=== PATIENT | female | born 1990 | race Caucasian/White ===

== ENCOUNTER 2018-02-19 07:16 | Day surgery (SDC) | payer MEDICAID, OTHER ==
[2018-02-18 12:46] LABS: HEMATOCRIT 38.5 % (36.0-47.0); HEMOGLOBIN 13.3 g/dL (12.0-15.5); MEAN CORPUSCULAR HEMOGLOBIN 30.9 pg (27.0-33.4); MEAN CORPUSCULAR HGB CONC 34.6 g/dL (32.0-36.0); MEAN CORPUSCULAR VOLUME 89 fl (80-97); PLATELET COUNT 150 10^3/uL (150-450); RED CELL DISTRIBUTION WIDTH 12.2 % (11.5-14.0); WHITE BLOOD COUNT 6.3 10^3/uL (4.0-10.5)
[2018-02-18 12:52] LABS: APPEARANCE,URINE SLIGHTLY-CLOUDY; BILIRUBIN,URINE NEGATIVE (NEGATIVE); COLOR,URINE YELLOW; GLUCOSE, URINE NEGATIVE (NEGATIVE); KETONES,URINE NEGATIVE (NEGATIVE); LEUKOCYTE ESTERASE,URINE NEGATIVE (NEGATIVE); NITRITE,URINE NEGATIVE (NEGATIVE); PROTEIN,URINE NEGATIVE (NEGATIVE); UROBILINOGEN,URINE NEGATIVE mg/dL (<2.0)
[2018-02-18 13:24] LABS: ALANINE AMINOTRANSFERASE 36 U/L (9-52); ALBUMIN 4.6 g/dL (3.5-5.0); ALKALINE PHOSPHATASE 73 U/L (38-126); ANION GAP 12 (5-19); ASPARTATE AMINO TRANSFERASE 30 U/L (14-36); BILIRUBIN,DIRECT 0.3 mg/dL (0.0-0.4); BILIRUBIN,TOTAL 0.8 mg/dL (0.2-1.3); BLOOD UREA NITROGEN 9 mg/dL (7-20); CALCIUM 9.3 mg/dL (8.4-10.2); CARBON DIOXIDE 28 mmol/L (22-30); CHLORIDE 101 mmol/L (98-107); GLUCOSE 77 mg/dL (75-110); POTASSIUM 3.9 mmol/L (3.6-5.0); SODIUM 140.7 mmol/L (137-145); TOTAL PROTEIN 7.3 g/dL (6.3-8.2)
[~2018-02-19 07:16] MED LIST: CEFAZOLIN 1 GM/D5W RTU 1 GM/50 ML RTUPB IV PRN; LACTATED RINGERS 1000 ML IV PRN; LIDOCAINE 0.5% INJ-PF (5 MG/ML) 50 ML SDV SUBCUT PRN
[2018-02-19] MEDS ORDERED: SUCCINYLCHOLINE CHLORIDE INJ 200 MG/10 ML VIAL ONE (07:43)
[2018-02-19] MEDS ORDERED: ONDANSETRON HCL INJ/PF 4 MG/2 ML SDV ONE (07:43)
[2018-02-19] MEDS ORDERED: DEXAMETHASONE SOD PHOSPHATE INJ 4 MG/1 ML VIAL ONE (07:43)
[2018-02-19] MEDS ORDERED: ROCURONIUM BROMIDE INJ 50 MG/5 ML VIAL IV ONE (07:43)
[2018-02-19] MEDS ORDERED: ALBUTEROL SULFATE 0.083% NEB 2.5 MG/3 ML AMPUL NEB ONE (08:03)
[2018-02-19] MEDS ORDERED: SCOPOLAMINE HYDROBROMIDE 1.5 MG PATCH.TD72 ONE (08:13)
[2018-02-19] MEDS ORDERED: FAMOTIDINE INJ/PF 20 MG/2 ML SDV IV ONE (08:14)
--- NOTE | 2018-02-19 08:40 | RADIOLOGY REPORT (SQ) ---
EXAM DESCRIPTION: CHEST SINGLE VIEW COMPLETED DATE/TIME: 02/19/2018 8:30 am REASON FOR STUDY: COUGH COMPARISON: 02/08/2009 EXAM PARAMETERS: NUMBER OF VIEWS: One view. TECHNIQUE: Single frontal radiographic view of the chest acquired. RADIATION DOSE: NA LIMITATIONS: None. FINDINGS: LUNGS AND PLEURA: No opacities, masses or pneumothorax. No pleural effusion. MEDIASTINUM AND HILAR STRUCTURES: No masses. Contour normal. HEART AND VASCULAR STRUCTURES: Heart normal in size. Normal vasculature. BONES: No acute findings. HARDWARE: None in the chest. OTHER: No other significant finding. IMPRESSION: NO ACUTE RADIOGRAPHIC FINDING IN THE CHEST. TECHNICAL DOCUMENTATION: JOB ID: [id number] [employer]- All Rights Reserved Reading location - IP/workstation name: [email or web address]
[2018-02-19] MEDS ORDERED: MIDAZOLAM 2 MG/2 ML INJ ONE (08:55)
[2018-02-19] MEDS ORDERED: FENTANYL CITRATE INJ/PF 100 MCG/2 ML AMPUL ONE (08:55)
[2018-02-19] MEDS ORDERED: HYDROMORPHONE HCL INJ/PF 2 MG/ML AMPULE ONE (08:56)
[2018-02-19] MEDS ORDERED: PROPOFOL INJ 200 MG/20 ML VIAL IV ONE (08:56)
[2018-02-19] MEDS ORDERED: ACETAMINOPHEN 1,000 MG/100 ML RTUPB IV ONE (08:56)
[2018-02-19] MEDS ORDERED: BUPIVACAINE HCL 0.5 % INJ/PF 30 ML SDV ONE (08:59)
[2018-02-19] MEDS ORDERED: MORPHINE SULFATE 10 MG/ML INJ IV PRN (10:00)
[2018-02-19] MEDS ORDERED: PROMETHAZINE HCL INJ 25 MG/1 ML VIAL IV PRN ×3 (10:00→11:03)
[2018-02-19] MEDS ORDERED: FENTANYL CITRATE INJ/PF 100 MCG/2 ML AMPUL IV PRN ×3 (10:00)
[2018-02-19] MEDS ORDERED: MEPERIDINE HCL/PF INJ 25 MG/1 ML DISP.SYRIN IV PRN (10:00)
[2018-02-19] MEDS ORDERED: OXYCODONE-ACETAMINOPHEN 5-325 MG TABLET PO PRN ×4 (10:00→11:03)
[2018-02-19] MEDS ORDERED: DIPHENHYDRAMINE HCL 50 MG/ML VIAL IV PRN (10:00)
[2018-02-19] MEDS: FENTANYL CITRATE INJ/PF 100 MCG/2 ML AMPUL ONE ×2 (10:30→10:40)
[2018-02-19] MEDS ORDERED: KETOROLAC TROMETHAMINE INJ/PF 30 MG/1 ML SDV ONE (10:52)
--- NOTE | 2018-02-19 11:06 | OPERATIVE REPORT E ---
Operative Report NAME: KENNEDY PINEDA : 1990 AGE: 27Y DATE OF SURGERY: 02/19/2018 ROOM: PREOPERATIVE DIAGNOSIS: PELVIC PAIN, DYSFUNCTIONAL UTERINE BLEEDING. POSTOPERATIVE DIAGNOSIS: PELVIC PAIN AND DYSFUNCTIONAL BLEEDING PLUS ADENOMYOSIS UTERI AND EDGARDO-FLO KEVIN SYNDROME. ESTIMATED BLOOD LOSS: 20 to 25 mL. PERTINENT HISTORY AND OPERATIVE FINDINGS: This is a 27-year-old female who was having pelvic pain and irregular bleeding. She decided ultimately to proceed with a D and C and laparoscopy. At the time of surgery the vagina and cervix appeared to be normal. The uterus was increased in size and boggy, about a 10-week size uterus. Adnexa revealed some inflammation around the tubes but they were open. Both ovaries appeared to be normal. The left ovary had an involuting Corpus luteum. Cul-de-sac had probably 20 mL of clear-bloody red-tinged fluid which was removed and sent for cytology. The liver appeared to be normal. The gallbladder appeared normal. There was flimsy scar tissue between the liver and the anterior peritoneum. Appendix normal, cecum normal. The rest of the bowel was normal. PROCEDURE: The patient was brought into the OR, placed on table in supine position. She was then inducted under general anesthesia. She was repositioned in a dorsal lithotomy position, prepped and draped in a sterile fashion. Timeout was called and then patient had the bladder emptied, about 50 mL of clear-yellow urine. A pelvic under anesthesia was performed. A weighted vaginal speculum was inserted. Lateral retractor was inserted. The cervix was grasped on its anterior lip with a single-tooth tenaculum and an Allis. Uterus was sounded to 10 cm, dilated with Wray dilators, and curetted with a small sharp curette. Minimal tissue was returned. Tenaculum probe was then inserted and the other equipment was removed. Attention was turned towards the abdominal wall. A Veress needle was introduced umbilically and carried through the various layers until the abdominal cavity was entered. Upon entering the abdominal cavity a drop of saline was placed on the Veress needle. The drop of saline rested easily into the abdominal cavity. The Veress needle was then hooked up to CO2. Patient had approximately 2 liters of CO2 injected to a pressure of 15 cm of water. The Veress needle was removed. A small incision was made infraumbilically. Through this incision a trocar and sleeve were inserted. The trocar was removed and through the sleeve a laparoscope was inserted. A second incision was then made suprapubically. Through this incision a trocar and sleeve were inserted. The trocar was removed. Through this sleeve a probe was inserted. The contents of the pelvis and abdomen were then visualized and video recorded. We did remove approximately 20 mL of serosanguineous fluid from the cul-de-sac. As stated, the uterus was somewhat boggy, consistent with adenomyosis. The tubes looked a little bit boggy as well but they appeared to be open. The ovaries appeared to be normal, as stated previously. The left ovary had a collapsing corpus luteum. The appendix was visualized and found to be normal. The rest of the bowel appeared to be normal. The liver appeared to be grossly normal. There was flimsy scar tissue between the liver and the anterior peritoneal wall. The gallbladder appeared to be normal. Stomach appeared to be normal. This terminated this part of the procedure. The lower sleeve was removed. The CO2 was allowed to escape. The upper sleeve was removed. Patient had 4 mL of 0.5 Marcaine injected in the subumbilical incision and she had 3 mL of 0.5% Marcaine injected in the suprapubic incision. The fascia was closed in both incisions using interrupted 0-Vicryl. The skin edges in the subumbilical incision were closed with 4-0 Prolene in a subcuticular fashion. The suprapubic incision skin edges was closed in an interrupted fashion using 4-0 Prolene. Attention was turned back down towards the vagina. The tenaculum probe was removed. There was some bleeding. Pressure was held with sponge sticks to take care of the bleeding. This terminated the procedure. The patient was taken out of Trendelenburg, placed back in the supine position, and transferred to recovery room in satisfactory condition. Estimated blood loss was 25 mL. Patient tolerated procedure well. DICTATING PHYSICIAN: VANESSA LA M.D. [id number] PHY#: [id number] ID: [id number] JOB#: [id number] ACCT: [id number] cc:VANESSA LA M.D. >
[2018-02-19 12:48] VITALS: BP 116/58
--- NOTE | 2018-02-19 15:22 | OPERATIVE REPORT E ---
Operative Report NAME: KENNEDY PINEDA : 1990 AGE: 27Y DATE OF SURGERY: 02/19/2018 ROOM: PREOPERATIVE DIAGNOSIS: PELVIC PAIN AND DYSFUNCTIONAL BLEEDING. POSTOPERATIVE DIAGNOSIS: PELVIC PAIN AND DYSFUNCTIONAL BLEEDING plus adenomyosis and Kee-Jb Dk syndrome. SURGEON: VANESSA LA M.D. ANESTHESIA: General and 0.5% Bupivacaine. PERTINENT HISTORY AND OPERATIVE FINDINGS: This is a 27-year-old female who had been having problems with some pelvic pain. Ultimately decided she wanted to proceed with further evaluation. At the time of surgery the vagina appeared to be normal. The cervix appeared to be normal. The uterus was increased in size and boggy, consistent with adenomyosis. The tubes appeared slightly swollen but they were open. The ovaries appeared to be normal. The left ovary had a Corpus luteum that had just involuted. Right ovary, as stated, appeared to be normal. The bowel appeared to be normal. The appendix appeared to be normal. The liver had some flimsy adhesions consistent with Kee-Jb Dk Syndrome. The rest of the bowel appeared to be normal. PROCEDURE: The patient was brought into the OR, placed on table in supine position. She was then inducted under general anesthesia. She is repositioned in a dorsal lithotomy position, prepped and draped in a sterile fashion. The bladder was then drained of 50 mL of clear-yellow urine. A pelvic under anesthesia was performed. A weighted vaginal speculum was inserted. Lateral retractor was inserted and the cervix was grasped on its anterior lip with a single-tooth tenaculum Dictation ended here. DICTATING PHYSICIAN: VANESSA LA M.D. [id number] PHY#: [id number] ID: [id number] JOB#: [id number] ACCT: [id number] cc:VANESSA LA M.D. >
== END 2018-02-19 12:35 | disposition home or self-care (01) ==
LOC: OROUT 07:16
PROVIDERS: ATTEND Obstetrics & Gynecology
DX: N93.8 Other specified abnormal uterine and vaginal bleeding (principal); N80.0 Endometriosis of uterus; N83.12 Corpus luteum cyst of left ovary; R10.2 Pelvic and perineal pain; N80.9 Endometriosis, unspecified; Z91.040 Latex allergy status; F17.210 Nicotine dependence, cigarettes, uncomplicated
CPT/HCPCS: 36415; 87205; 87070; 85027; 81025; 87075; 80053; 81001; 88162; 88305 ×2; 71045; 58120; 49320; J2250; J3490 ×2; J0690; J1100; J3010; J1885; J1170; J0330; J2405; J2704; S0028; J0131; 790

== ENCOUNTER → 2018-06-18 | Outpatient (CLI) | payer OTHER ==
--- NOTE | 2018-06-18 15:13 | RADIOLOGY REPORT (SQ) ---
EXAM DESCRIPTION: CHEST PA/LATERAL COMPLETED DATE/TIME: 06/18/2018 2:35 pm REASON FOR STUDY: SURGICAL CLEARANCE COMPARISON: 02/08/2009 EXAM PARAMETERS: NUMBER OF VIEWS: two views TECHNIQUE: Digital Frontal and Lateral radiographic views of the chest acquired. RADIATION DOSE: NA LIMITATIONS: none FINDINGS: LUNGS AND PLEURA: No opacities, masses or pneumothorax. No pleural effusion. MEDIASTINUM AND HILAR STRUCTURES: No masses or contour abnormalities. HEART AND VASCULAR STRUCTURES: Heart normal size. No evidence for failure. BONES: No acute findings. HARDWARE: None in the chest. OTHER: No other significant finding. IMPRESSION: NO SIGNIFICANT RADIOGRAPHIC FINDING IN THE CHEST. TECHNICAL DOCUMENTATION: JOB ID: [id number] [employer]- All Rights Reserved Reading location - IP/workstation name: [email or web address]
[2018-06-18 16:06] LABS: INTERNATIONAL RATION (INR) 0.98; PARTIAL THROMBOPLASTIN TIME 31.9 SEC (23.5-35.8); PROTHROMBIN TIME 13.5 SEC (11.4-15.4)
[2018-06-18 16:07] LABS: ABSOLUTE EOSINOPHILS # (AUTO) 0.1 10^3/uL (0.0-0.6); ABSOLUTE LYMPHOCYTES (AUTO) 2.1 10^3/uL (0.5-4.7); ABSOLUTE MONOCYTES (AUTO) 0.4 10^3/uL (0.1-1.4); ABSOLUTE NEUT (AUTO) 6.3 10^3/uL (1.7-8.2); BASOPHILS % (AUTO) 0.3 % (0-2); EOSINOPHILS % (AUTO) 1.2 % (0-6); HEMATOCRIT 38.3 % (36.0-47.0); HEMOGLOBIN 13.4 g/dL (12.0-15.5); LYMPHOCYTES % (AUTO) 23.1 % (13-45); MEAN CORPUSCULAR HEMOGLOBIN 31.4 pg (27.0-33.4); MEAN CORPUSCULAR VOLUME 90 fl (80-97); PLATELET COUNT 192 10^3/uL (150-450); RED BLOOD COUNT 4.27 10^6/uL (3.72-5.28); RED CELL DISTRIBUTION WIDTH 12.1 % (11.5-14.0); SEGMENTED NEUTROPHILS % (AUTO) 70.4 % (42-78); TOTAL CELLS COUNTED % (AUTO) 100 %
[2018-06-18 16:21] LABS: ALANINE AMINOTRANSFERASE 12 U/L (9-52); ALBUMIN 4.5 g/dL (3.5-5.0); ALKALINE PHOSPHATASE 102 U/L (38-126); ANION GAP 12 (5-19); ASPARTATE AMINO TRANSFERASE 19 U/L (14-36); BILIRUBIN,DIRECT 0.2 mg/dL (0.0-0.4); BILIRUBIN,TOTAL 0.5 mg/dL (0.2-1.3); BLOOD UREA NITROGEN 11 mg/dL (7-20); CALCIUM 9.4 mg/dL (8.4-10.2); CARBON DIOXIDE 20 mmol/L (22-30); CHLORIDE 107 mmol/L (98-107); GLUCOSE 96 mg/dL (75-110); POTASSIUM 4.2 mmol/L (3.6-5.0); SODIUM 138.7 mmol/L (137-145); TOTAL PROTEIN 7.2 g/dL (6.3-8.2)
--- NOTE | 2018-06-19 14:57 | EKG REPORT ---
SEVERITY:- NORMAL ECG - SINUS RHYTHM : Confirmed by: Chuck Bustillos 19-Jun-2018 14:56:25
== END ==
LOC: OD 14:04
PROVIDERS: ATTEND Obstetrics & Gynecology
DX: Z01.818 Encounter for other preprocedural examination (principal)
CPT/HCPCS: 36415; 71046; 80053; 83036; 85025; 85610; 85730; 93005; 93010

== ENCOUNTER 2018-12-28 11:25 | Day surgery (SDC) | payer OTHER ==
[~2018-12-28 11:25] MED LIST changes: -CEFAZOLIN 1 GM/D5W RTU 1 GM/50 ML RTUPB IV PRN; -LACTATED RINGERS 1000 ML IV PRN; -LIDOCAINE 0.5% INJ-PF (5 MG/ML) 50 ML SDV SUBCUT PRN; +PROPOFOL INJ 200 MG/20 ML VIAL IV ONE
[2018-12-28] MEDS ORDERED: PROPOFOL INJ 200 MG/20 ML VIAL IV ONE (11:54)
--- NOTE | 2018-12-28 12:17 | Operative Report ---
Operative Report DATE OF SURGERY: 12/28/18 Operative Report: The risks, benefits and alternatives of the procedure including the risk of bleeding, perforation requiring surgery have been explained to the patient in detail and informed consent has been obtained. The patient is placed in the left, lateral decubital position. Timeout was called. Propofol medication is administered. A rectal examination is done which did not reveal any masses, tears or fissures. An Olympus videoscope was introduced into the patient's rectum. The scope was then carefully advanced all the way to the cecum. The cecum was identified by the usual anatomical landmarks including the ileocecal valve as well as the appendiceal office. Photodocumentation is obtained. The scope was then sequentially pulled back via the various segments of the colon including the ascending colon, hepatic flexure, transverse colon, splenic flexure, descending colon and finally into the rectosigmoid portions of the colon. Retroflexion maneuvers performed. PREOPERATIVE DIAGNOSIS: Blood in stools, change in bowel habits POSTOPERATIVE DIAGNOSIS: No evidence of diverticulosis. Internal hemorrhoids. Right-sided colon inflammation status post biopsy. No no further polyps noted OPERATION: Colonoscopy with biopsy SURGEON: MIKE KUO ANESTHESIA: LMAC TISSUE REMOVED OR ALTERED: As noted above. COMPLICATIONS: None. ESTIMATED BLOOD LOSS: None. INTRAOPERATIVE FINDINGS: As noted above. PROCEDURE: Patient tolerated the procedure well. No immediate postprocedure complications are noted. Patient is discharged in good condition. Discharge date 12/28/2018. Discharge diet: Regular. Discharge activity: Regular. 2 to 3-week follow-up to discuss findings. Patient is instructed to call the office or proceed to the emergency room should there be any further problems or questions. Wait on the pathology.
[2018-12-28] MEDS ORDERED: SIMETHICONE 80 MG TAB.CHEW ONE ×2 (12:21→12:23)
[2018-12-28 12:41] VITALS: BP 105/53
== END 2018-12-28 12:54 | disposition home or self-care (01) ==
LOC: END 11:25
PROVIDERS: ATTEND Internal Medicine Gastroenterology
DX: K52.9 Noninfective gastroenteritis and colitis, unspecified (principal); K64.8 Other hemorrhoids; K92.1 Melena; Z86.010 Personal history of colon polyps; Z91.040 Latex allergy status; E78.00 Pure hypercholesterolemia, unspecified; Z79.899 Other long term (current) drug therapy
CPT/HCPCS: 45380; 88305 ×2; J2704; 811